=== PATIENT | male | born 1985 | race Two or more races ===

== ENCOUNTER → 2018-07-28 | Outpatient (CLI) | payer OTHER ==
[2018-07-28 08:16] LABS: UA SPECIFIC GRAVITY 1.025 (1.005-1.035); microscopic required? YES; urine erythrocyte TRACE (NEGATIVE)
[2018-07-28 08:26] LABS: ALBUMIN 3.7 g/dL (3.4-5.0); ALKALINE PHOSPHATASE 96 U/L (46-116); ALT/SGPT 122 U/L (16-63); AST/SGOT 60 U/L (15-37); BILIRUBIN TOTAL 0.66 mg/dL (0.20-1.00); CALCIUM 8.4 mg/dL (8.5-10.1); CARBON DIOXIDE 28.7 mmol/L (21-32); CHLORIDE SERUM 98 mmol/L (98-107); CHOLESTEROL 167 mg/dL (<200); CHOLESTEROL/HDL RATIO 4.3; CREATININE SERUM 0.9 mg/dL (0.7-1.3); FREE T4 1.16 ng/dL (0.76-1.46); GFR1 > 60 mL/min; GLUCOSE SERUM 257 mg/dL (74-106); HDL CHOLESTEROL 39 mg/dL (40-60); MAGNESIUM 1.6 mg/dL (1.8-2.4); POTASSIUM SERUM 3.8 mmol/L (3.5-5.1); SODIUM SERUM 136 mmol/L (136-145); TOTAL PROTEIN, SERUM 8.1 g/dL (6.4-8.2); TRIGLYCERIDES 150 mg/dL (<150)
[2018-07-28 09:29] LABS: BASOPHIL % 0.3 % (0-2); PLATELET COUNT 200 x10^3mcL (130-400)
== END | disposition home or self-care (01) ==
LOC: LB 07:34
PROVIDERS: Family Medicine
DX: E11.9 Type 2 diabetes mellitus without complications (principal); I10 Essential (primary) hypertension; E66.9 Obesity, unspecified; E78.5 Hyperlipidemia, unspecified
CPT/HCPCS: 84439

== ENCOUNTER → 2018-11-16 | Outpatient (CLI) | payer OTHER ==
[2018-11-16 09:36] LABS: UA SPECIFIC GRAVITY 1.015 (1.005-1.035); microscopic required? YES; urine erythrocyte 1+ (NEGATIVE)
[2018-11-16 09:52] LABS: T3 TOTAL 1.43 ng/mL
[2018-11-16 10:09] LABS: ALBUMIN 3.6 g/dL (3.4-5.0); ALKALINE PHOSPHATASE 100 U/L (46-116); ALT/SGPT 91 U/L (16-63); AST/SGOT 39 U/L (15-37); BILIRUBIN TOTAL 0.63 mg/dL (0.20-1.00); CALCIUM 8.5 mg/dL (8.5-10.1); CARBON DIOXIDE 27.4 mmol/L (21-32); CHLORIDE SERUM 95 mmol/L (98-107); CREATININE SERUM 0.8 mg/dL (0.7-1.3); FREE T4 1.25 ng/dL (0.76-1.46); GFR1 > 60 mL/min; GLUCOSE SERUM 269 mg/dL (74-106); HDL CHOLESTEROL 37 mg/dL (40-60); POTASSIUM SERUM 3.4 mmol/L (3.5-5.1); SODIUM SERUM 125 mmol/L (136-145); TOTAL PROTEIN, SERUM 7.6 g/dL (6.4-8.2); TRIGLYCERIDES 123 mg/dL (<150)
[2018-11-16 10:14] LABS: CHOLESTEROL 100 mg/dL (<200); CHOLESTEROL/HDL RATIO 2.7
[2018-11-16 11:31] LABS: BASOPHIL % 0.2 % (0-2); PLATELET COUNT 182 x10^3mcL (130-400); RED CELL DISTRIBUTION WIDTH 13.8 % (11.5-14.5)
[2018-11-17 08:20] LABS: microalbumin:creatinine ratio 143.5 (0.0-30.0)
== END | disposition home or self-care (01) ==
LOC: LB 08:36
DX: E11.9 Type 2 diabetes mellitus without complications (principal); E78.2 Mixed hyperlipidemia; I10 Essential (primary) hypertension; E66.01 Morbid (severe) obesity due to excess calories
CPT/HCPCS: 84439

== ENCOUNTER 2018-12-01 09:44 | Emergency (ER) | payer OTHER ==
[~2018-12-01] VITALS: Ht 180.3 cm; Wt 156.5 kg
[2018-12-01 09:50] VITALS: Ht 180.3 cm; Wt 156.5 kg
[2018-12-01 10:47] LABS: BASOPHIL % 0.5 % (0-2); PLATELET COUNT 213 x10^3mcL (130-400); RED CELL DISTRIBUTION WIDTH 13.4 % (11.5-14.5)
[2018-12-01 10:53] LABS: CALCIUM 9.7 mg/dL (8.5-10.1); CARBON DIOXIDE 26.9 mmol/L (21-32); CHLORIDE SERUM 101 mmol/L (98-107); GFR1 > 60 mL/min; GLUCOSE SERUM 350 mg/dL (74-106); POTASSIUM SERUM 4.3 mmol/L (3.5-5.1); SODIUM SERUM 138 mmol/L (136-145)
[2018-12-01 10:58] LABS: ALBUMIN 3.8 g/dL (3.4-5.0); ALKALINE PHOSPHATASE 106 U/L (46-116); ALT/SGPT 91 U/L (16-63); AST/SGOT 40 U/L (15-37); BILIRUBIN TOTAL 0.53 mg/dL (0.20-1.00); TOTAL PROTEIN, SERUM 7.9 g/dL (6.4-8.2)
[2018-12-01 12:42] VITALS: BP 155/86
== END 2018-12-01 12:43 | disposition home or self-care (01) ==
LOC: ED 09:44
PROVIDERS: Emergency Medicine
DX: E11.65 Type 2 diabetes mellitus with hyperglycemia (principal); I10 Essential (primary) hypertension; E78.00 Pure hypercholesterolemia, unspecified; E66.9 Obesity, unspecified; Z86.39 Personal history of other endocrine, nutritional and metabolic disease; Z68.42 Body mass index [BMI] 45.0-49.9, adult
CPT/HCPCS: 36415

== ENCOUNTER → 2018-12-09 | Outpatient (CLI) | payer OTHER ==
[2018-12-10 05:11] LABS: RAPID PLASMA REAGIN Non Reactive (Non Reactive)
== END | disposition home or self-care (01) ==
LOC: LB 08:19
DX: Z11.9 Encounter for screening for infectious and parasitic diseases, unspecified (principal)

== ENCOUNTER 2019-12-26 08:15 | Emergency (ER) | payer OTHER, SELFPAY ==
[~2019-12-26] VITALS: Ht 180.3 cm; Wt 141.1 kg
[2019-12-26 08:17] VITALS: Ht 180.3 cm; Wt 141.1 kg
[2019-12-26 10:11] LABS: CALCIUM 8.6 mg/dL (8.5-10.1); CARBON DIOXIDE 23.2 mmol/L (21-32); CHLORIDE SERUM 101 mmol/L (98-107); CREATININE SERUM 0.9 mg/dL (0.7-1.3); GFR1 > 60 mL/min; GLUCOSE SERUM 262 mg/dL (74-106); POTASSIUM SERUM 3.2 mmol/L (3.5-5.1); SODIUM SERUM 140 mmol/L (136-145)
[2019-12-26 10:15] LABS: ALKALINE PHOSPHATASE 69 U/L (46-116); ALT/SGPT 48 U/L (16-63); AST/SGOT 32 U/L (15-37); BILIRUBIN TOTAL 0.7 mg/dL (0.20-1.00); C REACTIVE PROTEIN 7.6 mg/dL (<=0.9); LACTIC DEHYDROGENASE (LDH) 466 U/L (100-190); TOTAL PROTEIN, SERUM 8.2 g/dL (6.4-8.2)
[2019-12-26 10:20] LABS: ALBUMIN 3.1 g/dL (3.4-5.0)
[2019-12-26 10:29] LABS: BASOPHIL % 0.2 % (0-2); PLATELET COUNT 268 x10^3mcL (130-400); RED CELL DISTRIBUTION WIDTH 13.5 % (11.5-14.5)
[2019-12-26 10:46] LABS: UA SPECIFIC GRAVITY >=1.030 (1.005-1.035); microscopic required? YES; urine erythrocyte TRACE (NEGATIVE)
[2019-12-26 13:58] VITALS: BP 144/76
== END 2019-12-26 13:58 | disposition home or self-care (01) ==
LOC: ED 08:15
PROVIDERS: Specialist
DX: U07.1 COVID-19 (principal); I10 Essential (primary) hypertension; E11.9 Type 2 diabetes mellitus without complications; E78.00 Pure hypercholesterolemia, unspecified
CPT/HCPCS: 36600; 83880; 85378; 87804; J0456; J0696; U0003-CS